=== PATIENT | female | born 1950 | race Caucasian/White ===

== ENCOUNTER → 2025-04-24 14:50 | Outpatient (CLI) | payer OTHER, SELFPAY ==
--- NOTE | 2025-04-24 14:59 | DI.RAD.S_ITS ---
PROCEDURE: XR LUMBAR SPINE 2-3V INDICATIONS: LOW BACK PAIN TECHNIQUE: Two views of the lumbar spine were acquired. COMPARISON: None. FINDINGS: Lumbar spine curvature and alignment: Mild levo scoliotic curve appreciated. Bones: There are no osseous abnormalities. Disc spaces: Severe L1-2, L2-3, mild L3-4, severe L4-5 and L5-S1 degenerative disc disease noted. Severe L3-4 through L5-S1 degenerative facet disease Soft tissues: No soft tissue swelling, calcification or mass. IMPRESSION: Degeneration Dictated by: Choco Arana M.D. on 04/25/2025 at 10:25 Approved by: Choco Arana M.D. on 04/25/2025 at 10:26
== END ==
LOC: RAD 14:58
PROVIDERS: PCP Student in an Organized Health Care Education/Training Program; Referring Provider Chiropractor; Visit Provider Chiropractor
DX: M51.369 Other intervertebral disc degeneration, lumbar region without mention of lumbar back pain or lower extremity pain (principal); M51.379 Other intervertebral disc degeneration, lumbosacral region without mention of lumbar back pain or lower extremity pain; M47.816 Spondylosis without myelopathy or radiculopathy, lumbar region; M47.817 Spondylosis without myelopathy or radiculopathy, lumbosacral region; M54.50 Low back pain, unspecified
CPT/HCPCS: 72100